=== PATIENT | female | born 1935 | race Hispanic/Latino ===

== ENCOUNTER 2017-01-05 16:01 | Outpatient (CLI) | payer MEDICARE ==
--- NOTE | 2017-01-06 14:00 | XRay Report ---
RIGHT WRIST FOUR VIEWS: 01/05/17 00:00:00 CLINICAL: Pain and swelling. FINDINGS: The carpal bones are intact. The distal radius and ulna are intact. No fracture or dislocation. 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 Mild soft tissue swelling. No foreign body or soft tissue air. 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 Otherwise normal.
== END 2017-01-05 16:02 | disposition home or self-care (01) ==
LOC: SPVIMAG 16:01
DX: M19.041 Primary osteoarthritis, right hand (principal); M25.431 Effusion, right wrist